=== PATIENT | male | born 1965 | race Caucasian/White ===

== ENCOUNTER 2024-04-04 05:04 | Observation (INO) ==
--- NOTE | 2024-02-25 13:12 | PAT Medication Instructions ---
Medication Instructions Date of Service February 25, 2024 Home Medications aspirin 81 mg tablet,delayed release (Adult Aspirin Regimen) 81 mg PO QAM empagliflozin 10 mg tablet (Jardiance) 10 mg PO QPM glimepiride 2 mg tablet (Amaryl) 4 mg PO QAM metformin 1,000 mg tablet (Glucophage) 1,000 mg PO BID omeprazole 20 mg capsule,delayed release 20 mg PO QPM rivaroxaban 20 mg tablet (Xarelto) 20 mg PO QAM bimatoprost 0.03 % eye drops 1 drp OPR HS carvedilol 12.5 mg tablet 12.5 mg PO BID cyanocobalamin (vitamin B-12) 1,000 mcg tablet 1,000 mcg PO QPM fenofibrate nanocrystallized 145 mg tablet 145 mg PO QPM rosuvastatin 10 mg tablet 10 mg PO QAM amiodarone 200 mg tablet 200 mg PO BID bupropion HCl 150 mg 24 hr tablet, extended release 150 mg PO QAM calcium carbonate 500 mg-vitamin D3 3.125 mcg (125 unit) tablet 1 tab PO BID fexofenadine 180 mg tablet 180 mg PO QAM semaglutide (weight loss) 0.5 mg/0.5 mL subcutaneous pen injector (Wegovy) 0.5 - 1 mg subcut Q7D STOP 7 days before surgery semaglutide (weight loss) 0.5 mg/0.5 mL subcutaneous pen injector (Wegovy) 0.5 - 1 mg subcut Q7D STOP 3 days before surgery empagliflozin 10 mg tablet (Jardiance) 10 mg PO QPM ASK your prescriber and surgeon aspirin 81 mg tablet,delayed release (Adult Aspirin Regimen) 81 mg PO QAM rivaroxaban 20 mg tablet (Xarelto) 20 mg PO QAM(in order for spinal or epidural anesthesia, Xarelto needs to be stopped 72 hours/3 days before surgery. Please check if okay with doctor that prescribes this to you) STOP taking 48 hours before surgery fenofibrate nanocrystallized 145 mg tablet 145 mg PO QPM DO NOT take the morning of surgery glimepiride 2 mg tablet (Amaryl) 4 mg PO QAM metformin 1,000 mg tablet (Glucophage) 1,000 mg PO BID calcium carbonate 500 mg-vitamin D3 3.125 mcg (125 unit) tablet 1 tab PO BID fexofenadine 180 mg tablet 180 mg PO QAM Take morning of surgery With a small sip of water, OTHERWISE NOTHING TO EAT OR DRINK AFTER MIDNIGHT: carvedilol 12.5 mg tablet 12.5 mg PO BID rosuvastatin 10 mg tablet 10 mg PO QAM amiodarone 200 mg tablet 200 mg PO BID bupropion HCl 150 mg 24 hr tablet, extended release 150 mg PO QAM Take evening before surgery metformin 1,000 mg tablet (Glucophage) 1,000 mg PO BID omeprazole 20 mg capsule,delayed release 20 mg PO QPM bimatoprost 0.03 % eye drops 1 drp OPR HS carvedilol 12.5 mg tablet 12.5 mg PO BID cyanocobalamin (vitamin B-12) 1,000 mcg tablet 1,000 mcg PO QPM amiodarone 200 mg tablet 200 mg PO BID calcium carbonate 500 mg-vitamin D3 3.125 mcg (125 unit) tablet 1 tab PO BID Other Notes If you have any questions please call us at [phone] or [phone] or [phone] or [phone]
--- NOTE | 2024-03-07 11:58 | Anesthesiology Consultation ---
Date of Service March 07, 2024 Assessment & Plan (1) Encounter for pre-operative examination: - Check BSG AM DOS - Infectious disease screening: Per assessment on 03/07/24: No known infectious disease contacts or current infectious disease symptoms. No noted recent Covid positive test result. - Outpatient joint assessment: Pt currently scheduled for inpatient pathway. If surgeon requests review for outpatient joint pathway, patient is not recommended candidate for outpatient joint program from anesthesia standpoint. - Rivaroxaban instructions: patient made aware that for neuraxial anesthesia, Rivaroxaban needs to be held 72 hours prior to surgery. Patient voiced understanding/will check if okay with prescriber. - Semaglutide/Wejoy instructions: Patient informed at PAT visit to stop 7 days prior to surgery- voiced understanding. DOS 04/04/24. Advised last dose to be 03/28/24. - Cardiology visit (02/11/24): "Patient is stable from a cardiac perspective to proceed with knee replacement as planned. He remains on amiodarone, with no symptoms to suggest recurrent ventricular arrhythmias, no arrhythmia events detected on device interrogation. For your upcoming knee surgery: Take your last dose of Xarelto in the evening 3 days prior to the procedure.. as noted, patient is seen in longitudinal follow-up of his history of septal infarct, ventricular tachycardia/fibrillation, hypercholesterolemia, hypercoagulable state with assessment and plan as noted above.. Follow Up: Return in about 1 year" Chart Review Chart Review: Acceptable Risk for Surgery and Patient seen in Pre Admission Testing Teaching & Discussion Pre-Anesthesia Teaching/Discussion Notes: Instructed NPO after midnight before surgery,except medications with 15 cc of water. Medication instructions provided according to the PAT guidelines. History Surgery Operation Date: 04/04/24 12:10 Proposed Procedures p Left Total Knee Arthroplasty - David Davis, Height/Weight Height: 6 ft Weight: 137.9 kg Allergies Allergy/AdvReac Type Severity Reaction Status Date / Time lisinopril Allergy Mild Rash Verified 02/28/24 16:17 warfarin Allergy Mild Rash Verified 02/28/24 16:17 Medications Home Medications Medication Instructions Recorded Confirmed Last Taken aspirin 81 mg tablet,delayed 81 mg PO QAM 03/15/20 02/25/24 Unknown release (Adult Aspirin Regimen) empagliflozin 10 mg tablet 10 mg PO QPM 03/15/20 02/25/24 Unknown (Jardiance) glimepiride 2 mg tablet (Amaryl) 4 mg PO QAM 03/15/20 02/25/24 Unknown metformin 1,000 mg tablet 1,000 mg PO BID 03/15/20 02/25/24 Unknown (Glucophage) omeprazole 20 mg capsule,delayed 20 mg PO QPM 03/15/20 02/25/24 Unknown release rivaroxaban 20 mg tablet (Xarelto) 20 mg PO QAM 03/15/20 02/25/24 Unknown bimatoprost 0.03 % eye drops 1 drp OPR HS 08/23/23 02/25/24 Unknown carvedilol 12.5 mg tablet 12.5 mg PO BID 08/23/23 02/25/24 Unknown cyanocobalamin (vitamin B-12) 1,000 mcg PO QPM 08/23/23 02/25/24 Unknown 1,000 mcg tablet fenofibrate nanocrystallized 145 145 mg PO QPM 08/23/23 02/25/24 Unknown mg tablet rosuvastatin 10 mg tablet 10 mg PO QAM 08/23/23 02/25/24 Unknown amiodarone 200 mg tablet 200 mg PO BID 02/25/24 02/25/24 Unknown bupropion HCl 150 mg 24 hr tablet, 150 mg PO QAM 02/25/24 02/25/24 Unknown extended release calcium carbonate 500 mg-vitamin 1 tab PO BID 02/25/24 02/25/24 Unknown D3 3.125 mcg (125 unit) tablet fexofenadine 180 mg tablet 180 mg PO QAM 02/25/24 02/25/24 Unknown semaglutide (weight loss) 0.5 0.5 - 1 mg subcut Q7D 02/25/24 02/25/24 Unknown mg/0.5 mL subcutaneous pen injector (Aleisha) Past Medical History Medical History Bilateral primary osteoarthritis of knee H/O sinus tachycardia Heterozygous factor V Leiden mutation Hx of cardiac arrest Ventrical tachycardia 07/2023, ICD implanted Hx of deep venous thrombosis x2, most recent ~2008 Dx with Factor V Hx of squamous cell carcinoma Hyperlipemia Hypertension ICD (implantable cardioverter-defibrillator) in place 07/2023, [employer] with [facility] cardio/Dr. Jack Reflux esophagitis Sleep apnea CPAP (compliant) Type 2 diabetes mellitus Exercise / Class Metabolic Activity III < 4 Walking/Shop/Light housework Past Family History Family History Other Adopted Past Surgical History Surgical History H/O rhinoplasty History of cardiac cath 07/2023 ([place]): "Essentially normal coronary arteries" History of colonoscopy History of hernia surgery History of tooth extraction Status post ablation of incompetent vein using laser Past Anesthesia History No Hx of Anesthesia Complications and No Family Hx of Anesthesia Complications (Patient adopted) History of PONV No Hx of PONV and No Hx of Motion Sickness Social History Smoking Status: Never smoker Do You Dip or Chew Tobacco: No (Quit 2020) Hx Alcohol Use: No Hx Substance Use: No substance use type: does not use Review of Systems Patient denies chest pain, shortness of breath, fever, chills, cough, wheezing, palpitations. Physical Exam Vital Signs BP 123/76 P 84 TEMP 97.6 SP02 95%RA RESP 20 Physical Mildly decreased cervical extension range of motion. Full TMJ range of motion. TMD > 3.5 finger breaths Mallampati Score 3 Dentition: intact Lungs: clear throughout to auscultation Cardiac: regular rate and rhythm, no murmurs noted Spine: normal Carotid arteries: negative bruit Extremities: no LE edema Lab Results Anesthesia Preop Results Results Anesthesia Widget: WBC 6.85 K/ul (4.8-10.8) 03/07/24 Hgb 15.7 g/dl (14.0-18.0) 03/07/24 Hct 47.9 % (42.0-52.0) 03/07/24 Plt 237 K/uL (130-400) 03/07/24 PT 12.3 Seconds (9.0-12.0) H 03/07/24 PTT 29 Seconds (21-31) 03/07/24 INR 1.1 (0.9-1.1) 03/07/24 Blood Type A Negative 03/07/24 Antibody Screen NEGATIVE 03/07/24 Testing Laboratory Results 02/21/24 SODIUM 139 POTASSIUM 4.3 CHLORIDE 105 CO2 24 BUN 22 CREATININE 1.11 GLUCOSE 94 TSH 1.41 Electrocardiogram Date: 02/11/24 NSR at 79bpm. Low voltage QRS, consider pulmonary disease, pericardial effusion or normal variant. Septal infarct cited on or before 08/24/2023. No significant change compared to 08/28/2023 per flatwork supervisor comparison. Chest X-Ray Date: 08/27/23 Percutaneous ICD lead projects over the right chest wall. No pneumothorax. Echocardiogram Date: 08/23/23 LVEF 55-60%. No RWMA. Grade I DD. No significant valvular disease. Cardiac Catheterization Date: 08/23/23 Findings: LM -normal caliber, no significant disease LAD - Medium caliber, gives off a large first diagonal. LAD with no significant disease and extends around apex. D1 no significant disease Circumflex -medium caliber, no significant disease in AV groove circumflex. Small OM1 with luminal irregularities. RCA -dominant, large caliber, tortuous, angiographically normal Question of flush ostial occlusion near takeoff of OM1. Attempt made to probe area in question in case occluded vessel not visualized. Left main cannulated with EBU 3.5 guide. Demolitionist 50 wire used to attempt to wire into area near takeoff of OM1. No signs of of occluded vessel and further attempts stopped. LVEDP -26 Summary: Essentially normal coronary arteries. Elevated intracardiac filling pressure. Recurrent brief episodes of nonsustained ventricular arrhythmia during procedure. Recommendations: Continue amiodarone, beta-michael. Further work-up of arrhythmia and consideration of ICD per Dr. Jack. Other Testing ICD check Date: 12/17/23 Battery is at 98%. Presenting rhythm: Sinus rhythm.0 shocks delivered. "Not pacer dependent"
--- NOTE | 2024-04-03 12:06 | History & Physical Report ---
Date of Service April 03, 2024 Assessment & Plan (1) Osteoarthritis of left knee: We will proceed with a left total knee arthroplasty. Postoperatively he will be started on Xarelto for DVT prophylaxis and kept overnight in the hospital for postop medical management. He plans to have the hospital set up home health for discharge. History of Present Illness Chief Complaint: Osteoarthritis of the left knee. Primary Care Provider: Cyrus LewisDO Layton is a pleasant 58-year-old male who has been dealing with a chronic increasing left knee pain. X-rays and clinical examination have been diagnostic for severe osteoarthritis of his left knee. He is followed up with my partner, Dr. Anna. He has failed extensive conservative treatment including years of injections of the left knee. He is a high risk for surgery given his BMI, his factor V Leiden deficiency, and his diabetes. After full discussions in the office, he has elected proceed with a left total knee arthroplasty. Allergies Allergy/AdvReac Type Severity Reaction Status Date / Time lisinopril Allergy Mild Rash Verified 02/28/24 16:17 warfarin Allergy Mild Rash Verified 02/28/24 16:17 Home Medications Medication Instructions Recorded Confirmed Type aspirin 81 mg tablet,delayed 81 mg PO QAM 03/15/20 02/25/24 History release (Adult Aspirin Regimen) empagliflozin 10 mg tablet 10 mg PO QPM 03/15/20 02/25/24 History (Jardiance) glimepiride 2 mg tablet (Amaryl) 4 mg PO QAM 03/15/20 02/25/24 History metformin 1,000 mg tablet 1,000 mg PO BID 03/15/20 02/25/24 History (Glucophage) omeprazole 20 mg capsule,delayed 20 mg PO QPM 03/15/20 02/25/24 History release rivaroxaban 20 mg tablet (Xarelto) 20 mg PO QAM 03/15/20 02/25/24 History bimatoprost 0.03 % eye drops 1 drp OPR HS 08/23/23 02/25/24 History carvedilol 12.5 mg tablet 12.5 mg PO BID 08/23/23 02/25/24 History cyanocobalamin (vitamin B-12) 1,000 mcg PO QPM 08/23/23 02/25/24 History 1,000 mcg tablet fenofibrate nanocrystallized 145 145 mg PO QPM 08/23/23 02/25/24 History mg tablet rosuvastatin 10 mg tablet 10 mg PO QAM 08/23/23 02/25/24 History amiodarone 200 mg tablet 200 mg PO BID 02/25/24 02/25/24 History bupropion HCl 150 mg 24 hr tablet, 150 mg PO QAM 02/25/24 02/25/24 History extended release calcium carbonate 500 mg-vitamin 1 tab PO BID 02/25/24 02/25/24 History D3 3.125 mcg (125 unit) tablet fexofenadine 180 mg tablet 180 mg PO QAM 02/25/24 02/25/24 History semaglutide (weight loss) 0.5 0.5 - 1 mg subcut Q7D 02/25/24 02/25/24 History mg/0.5 mL subcutaneous pen injector (Wegovy) Past Med/Surg History Problem List Bilateral knee pain Sleep apnea Cardiac arrest with ventricular fibrillation (Acute) Cardiac arrest (Acute) Cardiac arrest with ventricular fibrillation Chronic venous insufficiency (Chronic) Venous stasis ulcer (Acute) HTN, goal to be determined Bilateral primary osteoarthritis of knee Osteoarthritis of left knee Hyperlipemia Type 2 diabetes mellitus Medical History Hypertension Hx of squamous cell carcinoma Hx of deep venous thrombosis x2, most recent ~2008 Dx with Factor V ICD (implantable cardioverter-defibrillator) in place 07/2023, [employer] with [facility] cardio/Dr. Jack Hx of cardiac arrest Ventrical tachycardia 07/2023, ICD implanted Sleep apnea CPAP (compliant) Heterozygous factor V Leiden mutation Reflux esophagitis H/O sinus tachycardia Surgical History History of cardiac cath 07/2023 ([place]): "Essentially normal coronary arteries" History of colonoscopy History of tooth extraction Status post ablation of incompetent vein using laser H/O rhinoplasty History of hernia surgery Family History Other Adopted Social History Smoking Status: Never smoker Tobacco Type: Smokeless Tobacco (Dip or Chew) Second Hand Exposure: No; Do You Dip or Chew Tobacco: No (Quit 2020); Hx Alcohol Use: No Hx Substance Use: No Preferred Language: Kosovan Communication Ability: Effective Visual Impairment: Limited Hearing Ability: Normal Fancy Stitcher Required: No Beliefs That Will Affect Care: None marital status: Current Living Situation: Spouse current occupational status: employed current occupation: manager new product for [employer] Feels Safe at Home: Yes Safety Concerns: Feels Safe At This Time Assistive Devices: Cane, CPAP and Glasses Review of Systems All systems reviewed & are unremarkable except as noted in HPI & below. Physical Exam On physical examination of the left knee, he has a slight varus deformity. He has tenderness palpation of the distal medial femoral condyle and over the medial joint line.. Constitutional WD/WN, vitals as above Eyes PERRL, conjunctivae normal, anicteric sclerae ENMT external ear and nose normal, oropharynx normal Neck trachea midline, no thyromegaly Respiratory normal respiratory effort Cardiovascular RRR, no murmur, no edema Gastrointestinal (Abdomen) normal bowel sounds, soft, nontender, no hepatosplenomegaly Psychiatric A+Ox3, euthymic affect Results & Data Results & Data Laboratory Results . Diagnostic Findings X-rays of the left knee show advanced osteoarthritis with joint space narrowing, osteophyte formation, and [id number] articulation. PG Care Time/CCT Total # of Minutes Spent Total Time Spent with Patient: Total time spent is greater than 50% in coordination of care (as documented) at patient's floor/unit and/or counseling patient: Coding Level of Care Code None Diagnoses Osteoarthritis of left knee M17.12
[2024-04-04] MEDS: dexAMETHasone**PF** 10 MG/ML VIAL IV SCH (06:04)
[2024-04-04] MEDS: LR 500ML BOLUS, THEN 15ML/HR IV SCH (06:04)
[2024-04-04] MEDS: FAMOTIDINE 20 MG TAB PO SCH (06:04)
[2024-04-04] MEDS: LR 60ML/HR IV SCH (06:04)
[2024-04-04] MEDS: ACETAMINOPHEN 500 MG TAB PO SCH (06:05)
[2024-04-04] MEDS: GABAPENTIN 600 MG DOSE PO SCH (06:05)
[2024-04-04] MEDS ORDERED: ROPIVACAINE 0.5% 5 MG/ML 30 ML VIAL ONE (06:07)
[2024-04-04] MEDS ORDERED: BUPIVACAINE 0.5 % 5 MG/1 ML PF 10ML VIAL ONE (06:07)
--- NOTE | 2024-04-04 06:27 | History & Physical Bridge Note ---
Date of Service April 04, 2024 History & Physical Bridge Note I have examined the patient, reviewed the History & Physical and in the interval since the performance of the History & Physical I have noted the following changes of clinical significance: no changes noted
[2024-04-04] MEDS ORDERED: fentaNYL citrate PF 100 MCG/2 ML VIAL IV PRN (06:33)
[2024-04-04] MEDS ORDERED: ATROPINE SULFATE 0.1 MG/ML 10ML SYR IV PRN (06:33)
[2024-04-04] MEDS ORDERED: ONDANSETRON INJ 2 MG/ML 2 ML VIAL IV PRN ×2 (06:33→09:51)
[2024-04-04] MEDS ORDERED: ePHEDrine sulfate 50 MG/ML AMP IV PRN (06:33)
[2024-04-04] MEDS ORDERED: fentaNYL citrate PF 100 MCG/2 ML VIAL ONE (06:35)
[2024-04-04] MEDS ORDERED: MIDAZOLAM HCL 1 MG/ML 2ML VIAL ONE ×3 (06:35→08:06)
[2024-04-04] MEDS: TRANEXAMIC ACID 1,000 MG **IV Pre-op IV SCH (06:39)
[2024-04-04] MEDS ORDERED: PROPOFOL IV EMULSION 10 MG/ML 20 ML VIAL IV ONE ×2 (06:43→08:30)
[2024-04-04] MEDS ORDERED: KETAMINE HCL 10MG/ML SYR ONE (06:46)
[2024-04-04] MEDS: ceFAZolin 3000MG 3,000 MG/72.5 ML BAG IV SCH (07:05)
[2024-04-04] MEDS: ORTHO JOINT ANESTHETIC ONE (07:42)
[2024-04-04] MEDS: TRANEXAMIC ACID 1,000 MG **IV Intra-op IV SCH (08:17)
--- NOTE | 2024-04-04 08:17 | Operative Report ---
PG Post Operative Report Pre & Post Diagnosis Operation Date: 04/04/24 07:00 Pre-Op Diagnosis: Degenerative Joint Disease Left Knee Post-Op Diagnosis: Degenerative Joint Disease Left Knee I identified the patient and participated in the time-out.: Yes Procedure Operation Date: 04/04/24 07:00 Actual Procedures p Left Total Knee Arthroplasty(Left) - David Davis DO Surgeon David Davis DO Pastrycook'S Assistant David Mae PA-C Estimated Blood Loss 30 Findings Consistent with Post-Op Diagnosis Specimens Left femoral tibial bone Description of Procedure Implants used: I used a Clint Persona total knee arthroplasty system with a size 10 standard PS femur, F tibia, 31 oval patella, and a size 16 CPS polyethylene bearing. All components were cemented in place with Biomet cement. Buck arrived [facility] for the above procedure. He was seen in the preoperative holding area and the operative extremity was identified and signed. He was given a preoperative antibiotic, TXA, a spinal anesthetic and an adductor nerve block. He was taken back to the operating room and laid on the table in supine position. He was given basic sedation. The operative knee was then prepped and draped in sterile fashion. A timeout was done, and the patient and the operative extremity was properly identified. A midline incision was made directly over the patella. Dissection was taken down to the extensor mechanism. A medial parapatellar arthrotomy was used. The medial retinaculum was released and the fat pad was mostly excised. The knee was flexed and the ACL, PCL, and meniscus were removed. A drill was sent down the center of the femoral canal followed by an intramedullary robert. Off that robert a distal femoral cutting block was placed. 9 mm was resected off the distal femur at 5 of valgus. A posterior referencing AP sizing guide was then placed on the distal femur. The femur measured to be a size 10. 2 drill holes were placed in 3 of external rotation. A 4-in-1 cutting block was then impacted into place. Anterior, posterior, and chamfer cuts were then made. The proximal tibia was then exposed. An external tibial alignment guide was placed. A tibial cut guide was then anchored in place and the proximal tibia was then resected. The posterior aspect of the knee was then opened up and any additional meniscus fragments and osteophytes were removed. The tibia measured to be a size F. The tibial plate was then placed in the appropriate rotation and the tibia was drilled and punched. Trial components were then placed. I used a size 16 CPS polyethylene insert. The knee was brought through a full range of motion and felt to be stable. The peg holes for the femoral component were then drilled. The patella was then everted and 9 mm was resected off the posterior aspect of the patella. The patella measured to be a size 31 oval. 3 peg holes were then drilled. A trial patella was placed. The knee was once again brought through a full range of motion and felt to be stable. Trial components were then removed. The surrounding soft tissues were injected with 100 cc of an orthopedic pain control cocktail. All components were then cemented into place with Biomet cement. The final polyethylene insert was then snapped into place. Once cement was dry the tourniquet was deflated. Hemostasis was obtained. A dilute betadyne lavage was then done for 3 minutes. The joint was then irrigated with normal saline solution. The medial parapatellar arthrotomy was then closed with #1 Vicryl suture. The skin was closed with 2-0 Vicryl, 3-0V lock suture, and brittany. A soft compressive dressing was placed. He was then transferred to a hospital bed and taken to the postanesthesia care unit in stable condition. He tolerated the procedure well. David Mae PA-C, was present for the entire procedure. He was critical for patient positioning, prepping, draping, retraction exposure, wound closure and application of sterile dressing. I attest to the content of the Intraoperative Record and any orders documented therein. Any exceptions are noted below.
--- NOTE | 2024-04-04 09:10 | XRay Report ---
TWO VIEWS LEFT KNEE CLINICAL HISTORY: Postoperative examination. FINDINGS: AP and crosstable lateral portable views of the left knee are obtained. A left knee arthrop lasty is in near anatomic alignment. There has been undersurface remodeling of the patella. No acute fracture is seen. There are expected postoperative changes around the knee including skin clips, soft tissue edema, and subcutaneous gas. Soft tissue calcifications are seen in the calf. IMPRESSION: Expected postoperative changes status post left knee arthroplasty. No acute fracture is s een. ACT 112: Negative or not required by law. Electronically signed by: Adrian Higgins M.D. 04/04/2024 9:08 AM
[2024-04-04] MEDS ORDERED: METOCLOPRAMIDE HCL INJ 5 MG/ML 2 ML VIAL IV PRN (09:51)
[2024-04-04] MEDS ORDERED: NALOXONE HCL 0.4 MG/1 ML VIAL/CARP IV PRN (09:51)
[2024-04-04] MEDS ORDERED: PHARMACY GLYCEMIC MGMT CONSULT PRN (09:51)
[2024-04-04] MEDS ORDERED: HYDROmorphone INJ 0.5 MG/0.5 ML SYR IV PRN (09:51)
[2024-04-04] MEDS ORDERED: MAGNESIUM HYDROXIDE SUSP 30 ML UDC PO PRN (09:51)
[2024-04-04] MEDS ORDERED: bisacodyL 10 MG SUPP PR PRN (09:51)
[2024-04-04] MEDS: ROPIV 0.5% 246mg, Ketorolac 30mg, EPINEPHrine 0.5mg in NSS INFIL SCH (09:57)
[2024-04-04] MEDS: SODIUM CHLORIDE 0.9% 1,000 ML IV SCH (10:23)
[2024-04-04] MEDS: AMIODARONE 200 MG TAB PO SCH (10:44)
[2024-04-04] MEDS: buPROPion XL 150 MG TABCR PO SCH (10:45)
[2024-04-04] MEDS: FEXOFENADINE HCL 180 MG TAB PO SCH (10:45)
[2024-04-04] MEDS: carvediloL 12.5 MG TAB PO SCH (10:45)
[2024-04-04] MEDS: MULTIVITAMIN TAB PO SCH (10:46)
[2024-04-04] MEDS: DOCUSATE SODIUM 100 MG CAP PO SCH (10:46)
[2024-04-04] MEDS: ROSUVASTATIN CALCIUM 10 MG TAB PO SCH (10:46)
--- NOTE | 2024-04-04 10:46 | Pharmacy Report ---
Pharmacy Glycemic Short Note 2 - Date of Service April 04, 2024 - Glycemic Short BSG Results (Last 24 hours): 04/04/24 04/04/24 05:28 09:12 POC Glucose 182 H 191 H OUTPATIENT ANTIDIABETIC REGIMEN: * metformin 1000 mg PO BID * empagliflozin 10 mg PO qPM * glimepiride 4 mg PO qAM * semaglutide 1 mg SQ weekly * A1c = 7.8% (08/24/23) ASSESSMENT: * Buck is a 59 yo T2DM s/p L TKA * He was administered a one time dose of dexamethasone 10 mg IV pre op. Anticipate steroid induced hyperglycemia. * I suspect patient will require SQ basal + bolus insulin while admitted based on fasting BSG of 182 mg/dL plus he takes multiple oral agents at home. * Will order a one time dose of weight based Lantus and start Novolog per weight/stress 3. PLAN FOR INPATIENT GLYCEMIC CONTROL: * Hold outpatient oral diabetes medications * Basal insulin * Lantus 25 units SQ x 1 dose * Reassess dosing on 6/8 AM * Bolus insulin * NovoLog per scale ACHS or Q6hrs while NPO * Goal Range: Low 110 mg/dL - High 140 mg/dL * Correction Factor: 15 mg/dL/unit * Nutritional / Prandial insulin per carb ratio of 1 unit per 6 grams CHO consumed
[2024-04-04] MEDS: KETOROLAC 30 MG/ML VIAL IV SCH (10:48)
--- NOTE | 2024-04-04 11:13 | Anesthesiology Progress Note ---
Date of Service April 04, 2024 Anesthesia Post Procedure Vital Signs Vital Signs: Temp Pulse Pulse Resp BP Pulse Ox O2 Del Method 04/04/24 10:41 97.5 F L 81 17 125/81 95 Room Air 04/04/24 10:20 97.7 F 78 17 119/75 97 Room Air 04/04/24 09:40 97.7 F 76 17 120/78 96 Room Air 04/04/24 09:10 79 20 113/71 95 Room Air 04/04/24 09:00 81 19 111/64 95 Room Air 04/04/24 08:50 77 17 114/67 98 Oxymask 04/04/24 08:42 97.2 F L 78 17 113/62 98 Oxymask 04/04/24 05:47 97.9 F 87 18 125/72 95 Room Air O2 Flow Rate 04/04/24 10:41 04/04/24 10:20 04/04/24 09:40 04/04/24 09:10 04/04/24 09:00 04/04/24 08:50 5 04/04/24 08:42 5 04/04/24 05:47 Pain Intensity Left Knee: Pain Intensity: 7 Transfer of Care Handoff Completed per policy Notes Mental Status: alert / awake / arousable and participated in evaluation Patient Amnestic to Procedure: Yes Nausea / Vomiting: adequately controlled Pain: adequately controlled Airway Patency, RR, SpO2: stable & adequate BP & HR: stable & adequate Hydration State: stable & adequate Neuraxial Anesthesia: was administered and sensory block is resolving Anesthetic Complications: no major complications apparent and Pt Satisfied with anesthetic care
[2024-04-04] MEDS: LANTUS PER UNIT CHARGE SC ONE (11:47)
[2024-04-04] MEDS: INSULIN ASPART PER UNIT CHARGE SC SCH (11:48)
[2024-04-04] MEDS: ceFAZolin 2000MG 2,000 MG/15 ML SYR IV SCH (15:27)
[2024-04-04] MEDS: SENNA 8.6 MG TAB PO SCH (20:06)
[2024-04-04] MEDS: FENOFIBRATE NANOCRYSTALLIZED 145 MG TABLET PO SCH (20:07)
--- OUTSIDE RECORDS SUMMARY | 2024-04-04 21:56 | External Medical Summary | Summary of Care ---
Author Name Unknown Organization [facility] Address [address] [place] [address] Phone [phone] Care Team Providers [facility] [employer] Name Role Phone Aquilino David MD Primary Care Provider + Encounter Details Date Type Department Care Team (Late st Contact Info) Description 12/21/2023 Telephone Access Center, [place] [address] [facility] *DO NOT REMOVE THIS DEPARTMENT* [place], [place] [id number] Services, Scheduling [address] [place] [address] Allergies Active Allergy Reactions Criticality Noted Date Comments Lisinopril Rash 11/14/2017 angiedema Warfarin Sodium Hives Medium 01/05/2011 Rash "like poison jamal" documented as of this encounter (statuses as of 03/21/2024) Medications Medication Sig Dispensed Refills Start Date End Date Status Omeprazole Magnesium (PRILOSEC OTC) 20 MG TBECIndications:Gas troesophageal reflux disease without esophagitis Take 1 Tab by mouth daily. 30 min before eating 90 Tab 3 07/30/2017 Active Blood Glucose Monitoring Suppl (D-CARE GLUCOMETER) w/Device KITIndications:Type 2 diabetes mellitus with hemoglobin A1c goal of less than 7.0% (HCC) Use as directed. 1 Kit 2 12/21/2017 Active Blood Glucose Monitoring Suppl (CONTOUR NEXT ONE) KITIndications:Type 2 diabetes mellitus with hemoglobin A1c goal of less than 7.0% (HCC) Use as directed. 1 Kit 5 12/21/2017 Active CHERYL MICROLET LANCETS MISCIndications:Typ e 2 diabetes mellitus with hemoglobin A1c goal of less than 7.0% ([facility]) Test home glucose once daily in am prior to breakfast 100 Each 3 12/21/2017 Active Contour Next Test In Vitro Strip (Glucose Blood)Indications:T ype 2 diabetes mellitus with hemoglobin A1c goal of less than 7.0% ([facility]) USE DIRECTED TEST TWICE DAILY 25 Strip 3 09/27/2020 Active Lumigan 0.01 % Ophthalmic Solution (Bimatoprost) Instill 1 Drop into both eyes at bedtime. Active Calcium 500 MG Oral Tablet Take 1 Tablet by mouth in the morning and 1 Tablet before bedtime. Active CPAP every night at bedtime . Active [facility] Vitamin B-12 1000 MCG Oral Tablet (vitamin b 12)Indications:B12 deficiency TAKE 1 TABLET BY MOUTH EVERY DAY IN THE MORNING 90 Tablet 4 08/06/2023 Active buPROPion HCl ER (XL) 150 MG Oral Tablet Extended Release 24 Hour (Wellbutrin XL)Indications:Adju stment disorder with depressed mood Take 1 Tablet by mouth in the morning. 90 Tablet 3 09/13/2023 Active Amiodarone HCl 200 MG Oral Tablet (Cordarone)Indicati ons:Ventricular fibrillation (HCC) Take 1 Tablet by mouth in the morning and 1 Tablet before bedtime. 180 Tablet 3 09/17/2023 Active Xarelto 20 MG Oral Tablet (Rivaroxaban) TAKE 1 TABLET BY MOUTH EVERY DAY WITH DINNER 90 Tablet 3 10/02/2023 Active Additional Information Patient taking differently: 20 mg Oral HS, Reported on 12/18/2023 Bimatoprost 0.03 % Ophthalmic Solution (Lumigan) INSTILL 1 DROP INTO THE RIGHT EYE ONCE DAILY INTHE EVENING 08/31/2023 Active Fenofibrate 145 MG Oral Tablet (Tricor)Indications :Mixed dyslipidemia TAKE 1 TABLET BY MOUTH EVERY DAY 90 Tablet 3 10/23/2023 Active Jardiance 10 MG Oral Tablet (Empagliflozin)Graciela cations:Type 2 diabetes mellitus with hemoglobin A1c goal of less than 7.0% ([facility]) TAKE 1 TABLET BY MOUTH EVERY DAY 90 Tablet 3 10/28/2023 Active EpiPen 2-Baldev 0.3 MG/0.3ML Injection Solution Auto-injector For a severe reaction: Place orange end against the outer thigh, press firmly, hold in place for 10 seconds and go to the Emergency room. 2 Each 11/07/2023 Active traZODone HCl 50 MG Oral Tablet (Desyrel)Indication s:Insomnia, unspecified type 1-2 tab 1 hour before bed for sleep 180 Tablet 3 11/30/2023 Active documented as of this encounter (statuses as of 03/21/2024) Active Problems Problem Noted Date Diagnosed Date Sustained VT (ventricular tachycardia) 4 PVT (paroxysmal ventricular tachycardia) 024 Automatic implantable cardioverter-defibrillator in situ 11/07/2023 Type 2 diabetes mellitus wit h hyperglycemia, without long-term current use of insulin 09/03/2023 Well adult exam 09/03/2023 Overview: 08/20 Vfib x3. Cath ok. found to be in ventricular fibrillation in the emergency room. He was cardioverted. Required a 2nd cardioversion. Transferred to [facility]. Required a 3rd cardioversion. Had cardiac catheterization showing clean arteries. He had a cardiac MRI showing a small amount of scar tissue that was suspected to be the cause of his arrhythmia. He had a defibrillator inserted and he was discharged home the next day. Was also started on amiodarone which he is continuing. 08/20 Cardiac MRI-1. Cardiac MRI findings of borderline reduced left ventricular systolic function. There is a focal near transmural scar noted in the basal to mid inferoseptum with corresponding edema on T2 para metric mapping (63 milliseconds) suggestive of an infarct which may be the source of patient's polymorphic ventricular tachycardia. 2. The left ventricular systolic function is borderline reduced. The calculated LV ejection fraction is 53% Dyslipidemia 01/01/2023 Primary osteoarthritis of left knee 01/01/2023 Lateral epicondylitis, right elbow 01/01/2023 Rotator cuff tendonitis, right 01/01/2023 Hx of actinic keratosis 06/22/2022 Overview: Bowenoid AK on L forearm Hx of nonmelanoma skin cancer 06/22/2022 Overview: SCCIS (L forearm 06/19) BRIDGETTE on CPAP 06/13/2022 Subchondral insufficiency fracture of condyle of left femur 06/13/2022 Anaphylaxis due to ingested food 03/14/2022 Cellulitis of left lower extremity 2020 Morbid obesity due to excess calories 06/17/2019 Hyperlipidemia 07/12/2018 Hx of venous thromboembolic disease 04/10/2018 Body mass index (BMI) of 40.0 to 44.9 in adult 1 Overview: Per Obesity protocol #1 Hypertension 04/10/2016 Overview: Per HTN Protocol Tobacco use disorder 03/31/2015 Adjustment disorder with depressed mood 02/25/20 14 Type 2 diabetes mellitus wit h hemoglobin A1c goal of less than 7.0% 05/20/2013 Overview: ICD-10 update of inactive term Factor 5 Leiden mutation, heterozygous 3 Overview: 11/10 new dx with 2nd DVT Sinus tachycardia 11/28/2012 Varicose vein of leg 01/05/2011 Venous insufficiency 01/05/2011 Overview: Compression stockings. Reflux esophagitis 01/05/2011 documented as of this encounter (statuses as of 03/21/2024) Resolved Problems Problem Noted Date Diagnosed Date Resolved Date Frequent PVCs 08/25/2023 08/28/2023 VF (ventricular fibrillation) 08/24/2023 08/28/2023 Polymorphic ventricular tachycardia 08/24/2023 08/28/2023 Venous stasis ulcer of ankle, left 2020 11/02/2020 HTN, goal below 140/80 09/16/201404/13 Overview: Per HTN Protocol Elevated blood pressure, situational 01/14/2013 09/16/2014 Tobacco use disorder 01/14/2013 014 History of DVT (deep vein thrombosis) 11/28/2012 10/09/2017 Obesity, Class II, BMI 35-39 .9, isolated (see actual BMI) 01/05/2011 08/02/2017 Overview: Per Obesity protocol #1 Dyslipidemia, goal LDL below 160 01/05/2011 11/26/2013 documented as of this encounter (statuses as of 03/21/2024) Immunizations Name Administration Dates Next Due COVID-19 mRNA, LNP-s, No Pre serve, 2-Dose Series (Work[employer]) 03/02/2021,02/09/2021 COVID-19, MRNA-LNP, 23-24, P F, 30 MCG/0.3 mL, 12 YRS AND ABOVE, IM ([employer]) 08/13/2023 Covid-19, Mrna, Lnp-s, Pf, B ivalent, 30 Mcg, IM, 12 yrs and above (Pfizer) 07/27/2022 Hepatitis B, 20+ yrs 05/10/2017,11/02/2016,08/31 Pneumococcal Conjugate Vacci ne, 20-valent ([id number]) 06/13/2022 Pneumococcal Polysaccharide PPV23 (Pneumovax) 02/24/2014 Seasonal Influenza Virus Vac cine, Unspecified Formulation 08/06/2020 Seasonal Influenza, PF, 6 M & above, IM , (FluLaval or Fluzone) 07/13/2023,07/20/2022,08/25/2019,07/12,07/30/2017 Seasonal Influenza, Quadriva lent, No Preserve, IM 06/30/2016,07/24/2015 Seasonal Influenza, Quadriva lent,with Preserve, 3 yr & above, IM 08/06/2020 Seasonal Influenza, Split, I IV3, With Preserve, Inj 09/16/2014,08/26/2013,07/15/2012,07/04,06/27/2010 TDAP (age 10 and older)(Boostrix) 06/21/2021 TDAP (age 11 and older)(Adacel) 06/27/2010 Zoster Vaccine Recombinant (Shingrix) 06/18/2020 ,12/19/2019 documented as of this encounter Social History Tobacco Use Types Packs/Day Years Used Date Smoking Tobacco: Never Smokeless Tobacco: Former Snuff Quit: 06/29/2021 Alcohol Use Standard Drinks/Week Comments No 0 (1 standard drink = 0.6 oz pur e alcohol) off & on --stopped 1 mo ago. PHQ-2 Answer Date Recorded PHQ Adult Total Score 0 07/13/2023 Hunger Vital Sign Answer Date Recorded Within the past 12 months, y ou worried that your food would run out before you got the money to buy more. Never true 06/29/20 Within the past 12 months, t he food you bought just didn't last and you didn't have money to get more. Never true 06/29/2023 Sex and Gender Information Value Date Recorded Sex Assigned at Male 03/25/2019 12:25 PM EDT Gender Identity Male 03/25/2019 12:25 PM EDT Sexual Orientation Straight 03/25/2019 12 :25 PM EDT Job Start Date Occupation Industry Not on file Not on file Not on file documented as of this encounter Functional Status Functional Status Response Date of Assess ment Are you deaf or do you have serious difficulty h earing? No 08/24/2023 Are you blind or do you have serious difficulty seeing, even when wearing glasses? No 08/24/2023 Do you have serious difficul ty walking or climbing stairs? (5 years old or older) No 08/24/2023 Do you have difficulty dress ing or bathing? (5 years old or older) No 08/24/2023 Because of a physical, menta l, or emotional condition, do you have difficulty doing errands alone such as visiting a doctor s office or shopping? (15 years old or older) No 08/24/20 Cognitive Status Response Date of Assessm ent Because of a physical, menta l, or emotional condition, do you have serious difficulty concentrating, remembering, or making decisions? (5 years old or older) No 08/24/2023 documented as of this encounter Miscellaneous Notes * Telephone Encounter - Rosalee Camarillo LPN - 12/21/2023 2:29 PM EST Spoke with patient-he wants to have RFA first to see if he can get relief to push out replacement surgery. States he wanted cleared by cardiology for all procedures. * Telephone Encounter - Rosalee Camarillo LPN - 12/21/2023 2:04 PM EST Left another message for patient. I need to talk to him if he returns call. * Telephone Encounter - Gladys Baugh OSA - 12/21/2023 9:39 AM EST Pt says he is returning a call from someone in the office. Pt wants to keep his appt on December 31. Gladys Ramos documented in this encounter Plan of Treatment Upcoming Encounters Date Type Department Care Team (Late st Contact Info) Description 05/14/2024 9:00 AM EDT Office Visit Family Practice [facility] [address] [place] [id number] [place] CRNP [address] [place] [address] 06/13/2024 11:20 AM EDT Telemedicine Nutrition & Weight Management, [facility] [address] [place] [address] Gemma Streeter PA-C [address] [place] [address] 07/23/2024 3:00 PM EDT Office Visit Dermatology [address] [place] [address] Bruna Camacho PA-C [address] [place] [address] [place] [address] 09/02/2024 10:30 AM EST Cardiac Studies Cardiology, [facility] [address] [place] [address] [facility] [address] [address] Scheduled Procedures Name Priority Associated Diagnoses Date/Ti me VT ISCHEMIC EPS AND CATHETER ABLATION Sustained VT (ventricular tachycardia) (HCC) COLONOSCOPY FLEXIBLE PROXIMA L DIAGNOSTIC Recall Colon cancer screening Health Maintenance Due Date Last Done Comments Hepatitis C Screening 1984 Cologuard 2011 Fecal Occult Blood Test 2011 Sigmoidoscopy 2011 Diabetic Foot Exam 01/02/2024 01/01/2023, 0 06/17/2019, 07/12/2018, Additional history exists HbA1c 04/23/2024 10/23/2023, 07/30, 07/13/2023, Additional history exists Diabetic Eye Exam 06/18/2024 06/18/2023, , 06/24/2020, Additional history exists Albumin/Creatinine Ratio 07/13/2024 023, 06/13/2022, 03/18/2021, Additional history exists Depression Screening 07/13/2024 07/13/2023 GFR 02/20/2025 02/21/2024, 1111/2022, 08/28/2023, Additional history exists Colonoscopy 09/14/2027 09/14/2017, 09/14/2017 Colorectal Cancer Screening 09/14/2027 Lipid Panel 08/24/2028 08/24/2023, 11/30, 08/16/2022, Additional history exists DTaP,Tdap,and Td Vaccines (3 - Td or Tdap) 06/21/2031 06/21/2021, 06/27/2010 Hepatitis B Completed 05/10/2017, 02/2017, 08/31/2016 Zoster Vaccines Completed 06/18/2020, 12/19/2019 Pneumococcal Vaccine: Pediatrics (0 to 5 Years) and At-Risk Patients (6 to 64 Years) Completed 06/13/2022, 02/24/2014 Influenza Vaccine (FLU shot) Completed , 07/20/2022, 08/06/2020, Additional history exists COVID-19 Vaccine Completed 08/13/2023, , 03/02/2021, Additional history exists GARDASIL-HPV IMMUNIZATION SERIES Aged Out No longer eligible based on patient's age to complete this topic MENINGOCOCCAL (MENACTRA/MENVEO) Aged Out No longer eligible based on patient's age to complete this topic documented as of this encounter Medical Devices Implanted Type Area Mechanical Estimator Device Identifier Shelf Expiration Date Model / Serial / Lot Lead Emblem S-Icd 45cm - [id number] Implanted:Qty: 1 on 08/27/2023 by Geovanni Bolivar MD at [facility] [place] [employer] : CRM [id number] 12/08/2024 [id number] / [id number] / [id number] Generator Pulse - [id number] Implanted:Qty: 1 on 08/27/2023 by Geovanni Bolivar MD at [facility] [place] [employer] : PAIN MGMT [id number] 04/03/2025 [id number] / [id number] / [id number] Sys Delivery Electrode S-Icd - [id number] Implanted:Qty: 1 on 08/27/2023 by Geovanni Bolivar MD at [facility] [place] [employer] : CRM [id number] 01/27/2024 [id number] / / [id number] documented as of this encounter Advance Directives * Full Code (Latest Code Status on File) Date Activated Date Inactivated Comments 08/24/2023 11:45 AM 08/28/2023 4:24 PM This orde r reflects the patients wishes and were consensually agreed upon. Question Answer Comments Discussion of Advance Directives occurred with: Patient Care Teams [employer] Relationship Specialty Start Date End Date Aquilino David MD [address] [facility] [place] [address] PCP - General Family Medicine 09/07/23 documented as of this encounter
--- OUTSIDE RECORDS SUMMARY | 2024-04-04 21:56 | External Medical Summary | Summary of Care ---
Author Name Unknown Organization [facility] Address [address] [place] [address] Phone [phone] Care Team Providers Care Film Crew Member Name Role Phone Aquilino David MD Primary Care Provider + Reason for Visit * Reason Onset Date Comments Medication Problem 01/03/2024 Encounter Details Date Type Department Care Team (Late st Contact Info) Description 01/03/2024 Telephone Family Practice [facility] [address] [place] [address] Aquilino David MD [address] [place] [address] Medication Problem Allergies Active Allergy Reactions Criticality Noted Date Comments Lisinopril Rash 11/14/2017 angiedema Warfarin Sodium Hives Medium 01/05/2011 Rash "like poison jamal" documented as of this encounter (statuses as of 04/03/2024) Medications Medication Sig Dispensed Refills Start Date End Date Status Omeprazole Magnesium (PRILOSEC OTC) 20 MG TBECIndications: Gastroesophageal reflux disease without esophagitis Take 1 Tab by mouth daily. 30 min before eating 90 Tab 3 7 Active Blood Glucose Monitoring Suppl (D-CARE GLUCOMETER) w/Device KITIndications:T ype 2 diabetes mellitus with hemoglobin A1c goal of less than 7.0% ([facility]) Use as directed. 1 Kit 2 8 Active Blood Glucose Monitoring Suppl (CONTOUR NEXT ONE) KITIndications:T ype 2 diabetes mellitus with hemoglobin A1c goal of less than 7.0% (HCC) Use as directed. 1 Kit 5 8 Active CHERYL MICROLET LANCETS MISCIndications: Type 2 diabetes mellitus with hemoglobin A1c goal of less than 7.0% (HCC) Test home glucose once daily in am prior to breakfast 100 Each 3 8 Active Contour Next Test In Vitro Strip (Glucose Blood)Indication s:Type 2 diabetes mellitus with hemoglobin A1c goal of less than 7.0% (HCC) USE DIRECTED TEST TWICE DAILY 25 Strip 3 0 Active Lumigan 0.01 % Ophthalmic Solution (Bimatoprost) Instill 1 Drop into both eyes at bedtime. Active Calcium 500 MG Oral Tablet Take 1 Tablet by mouth in the morning and 1 Tablet before bedtime. Active CPAP every night at bedtime . Active [facility] Vitamin B-12 1000 MCG Oral Tablet (vitamin b 12)Indications:B 12 deficiency TAKE 1 TABLET BY MOUTH EVERY DAY IN THE MORNING 90 Tablet 4 3 Active buPROPion HCl ER (XL) 150 MG Oral Tablet Extended Release 24 Hour (Wellbutrin XL)Indications:A djustment disorder with depressed mood Take 1 Tablet by mouth in the morning. 90 Tablet 3 3 Active Amiodarone HCl 200 MG Oral Tablet (Cordarone)Indic ations:Ventricul ar fibrillation (HCC) Take 1 Tablet by mouth in the morning and 1 Tablet before bedtime. 180 Tablet 3 3 Active Xarelto 20 MG Oral Tablet (Rivaroxaban) TAKE 1 TABLET BY MOUTH EVERY DAY WITH DINNER 90 Tablet 3 3 Active Additional Information Patient taking differently: 20 mg Oral HS, Reported on 12/18/2023 Bimatoprost 0.03 % Ophthalmic Solution (Lumigan) INSTILL 1 DROP INTO THE RIGHT EYE ONCE DAILY INTHE EVENING 3 Active Fenofibrate 145 MG Oral Tablet (Tricor)Indicati ons:Mixed dyslipidemia TAKE 1 TABLET BY MOUTH EVERY DAY 90 Tablet 3 3 Active Jardiance 10 MG Oral Tablet (Empagliflozin)I ndications:Type 2 diabetes mellitus with hemoglobin A1c goal of less than 7.0% (HCC) TAKE 1 TABLET BY MOUTH EVERY DAY 90 Tablet 3 3 Active EpiPen 2-Baldev 0.3 MG/0.3ML Injection Solution Auto-injector For a severe reaction: Place orange end against the outer thigh, press firmly, hold in place for 10 seconds and go to the Emergency room. 2 Each 4 Active traZODone HCl 50 MG Oral Tablet (Desyrel)Indicat ions:Insomnia, unspecified type 1-2 tab 1 hour before bed for sleep 180 Tablet 3 4 Active Vitamin D (Cholecalciferol ) 25 MCG (1000 UT) Oral Tablet Take by mouth. 02/11/20 24 Discontinued Carvedilol 12.5 MG Oral Tablet (Coreg)Indicatio ns:HTN, goal below 130/80 TAKE 1 TABLET BY MOUTH IN THE MORNING AND 1 TABLET BEFORE BEDTIME WITH FOOD 180 Tablet 2 3 03/07/20 24 Discontinued Rosuvastatin Calcium 10 MG Oral Tablet (Crestor)Indicat ions:Dyslipidemi a TAKE 1 TABLET BY MOUTH EVERY DAY IN THE MORNING 90 Tablet 2 3 03/07/20 24 Discontinued Glimepiride 2 MG Oral Tablet (Amaryl)Indicati ons:Type 2 diabetes mellitus with hemoglobin A1c goal of less than 7.0% (HCC) TAKE 2 TABLETS BY MOUTH EVERY DAY 180 Tablet 1 3 01/26/20 24 Discontinued metFORMIN HCl 1000 MG Oral Tablet (Glucophage) TAKE 1 TABLET BY MOUTH TWICE A DAY WITH BREAKFAST AND DINNER 180 Tablet 1 3 01/11/20 24 Discontinued Mounjaro 7.5 MG/0.5ML Subcutaneous Solution Pen-injector (Tirzepatide) Inject 7.5 mg under the skin once a week. 2 mL 3 01/07/20 24 Discontinued(Ref ill) Mounjaro 7.5 MG/0.5ML Subcutaneous Solution Pen-injector (Tirzepatide) Inject 7.5 mg under the skin once a week. 2 mL 4 01/08/20 24 Discontinued(Ref ill) Mounjaro 7.5 MG/0.5ML Subcutaneous Solution Pen-injector (Tirzepatide) Inject 7.5 mg under the skin once a week. 2 mL 4 02/12/20 24 Discontinued(Med ication List Clean Up) documented as of this encounter (statuses as of 04/03/2024) Active Problems Problem Noted Date Diagnosed Date [...] cardioverted. Required a 2nd cardioversion. Transferred to [facility]. Required a 3rd cardioversion. Had cardiac catheterization [...] as of this encounter (statuses as of 04/03/2024) Resolved Problems Problem Noted Date Diagnosed Date [...] as of this encounter (statuses as of 04/03/2024) Immunizations Name Administration Dates Next Due COVID-19 mRNA, LNP-s, No Pre serve, 2-Dose Series ([email or web address]) 03/02/2021,02/09/2021 COVID-19, MRNA-LNP, 23-24, P F, 30 MCG/0.3 mL, 12 YRS AND ABOVE, IM (PFIZER-Comirnaty) 08/13/2023 Covid-19, Mrna, Lnp-s, Pf, B ivalent, 30 Mcg, IM, 12 yrs and above (Pfizer) 07/27/2022 Hepatitis B, 20+ yrs 05/10/2017,11/02/2016,08/31 Pneumococcal Conjugate Vacci ne, 20-valent ([id number]) 06/13/2022 Pneumococcal Polysaccharide PPV23 (Pneumovax) 02/24/2014 Seasonal Influenza Virus Vac cine, Unspecified Formulation 08/06/2020 Seasonal Influenza, PF, 6 M & above, IM , (FluLaval or Fluzone) 07/13/2023,07/20/2022,08/25/2019,07/12,07/30/2017 Seasonal Influenza, Quadriva lent, No Preserve, IM 06/30/2016,07/24/2015 Seasonal Influenza, Quadriva lent,with Preserve, 3 yr & above, IM 08/06/2020 Seasonal Influenza, Split, I IV3, With Preserve, Inj 09/16/2014,08/26/2013,07/15/2012,07/04,06/27/2010 TDAP (age 10 and older)(Boostrix) 06/21/2021 TDAP, Age 7 and older, IM (Adacel) 06/27/2010 Zoster Vaccine Recombinant (Shingrix) 06/18/2020 ,12/19/2019 [...] money to buy more. Never true 06/29/20 23 Within the past 12 months, t he [...] encounter Miscellaneous Notes * Telephone Encounter - Glenys Beauchamp LPN - 01/08/2024 3:50 PM EDT Pt aware, but [facility] does not have it either. [employer] shortage. Would need next rx on . Pt will keep trying around to pharmacies, to see if any would come available. * Telephone Encounter - Aquilino David MD - 01/08/2024 1:06 PM EDT Sent to [facility]--notify pt * Telephone Encounter - Glenys Beauchamp LPN - 01/08/2024 12:06 PM EDT Please try and send to [facility]. * Telephone Encounter - Aquilino David MD - 01/07/2024 2:34 PM EDT Will see if our pharmacy has it. If not , [facility] may * Telephone Encounter - Nely Solano OSA - 01/03/2024 1:04 PM EST [facility] pharmacy can not get mediaction katya documented in this encounter Plan of Treatment Upcoming Encounters Date Type Department Care Team (Late st Contact Info) Description 05/14/2024 9:00 AM EDT Office Visit Family Practice [facility] [address] [place] [address] [place] CRNP [address] [place] [address] 06/13/2024 11:20 AM EDT Telemedicine Nutrition & Weight Management, [facility] [address] [facility] [place] [address] Gemma Streeter PA-C [address] [place] [address] 07/23/2024 3:00 PM EDT Office Visit Dermatology [address] [place] [address] Bruna Camacho PA-C [address] [place] [address] [place] [address] 09/02/2024 10:30 AM EST Cardiac Studies Cardiology, [facility] [address] [place] [address] [facility] [address] [place] [address] Scheduled Procedures Name Priority Associated Diagnoses Date/Ti [...] Depression Screening 07/13/2024 07/13/2023 GFR 02/20/2025 02/21/2024, 11/2022, 08/28/2023, Additional history exists Colonoscopy 09/14/2027 09/14/2017, [...] this encounter Medical Devices Implanted Type Area Nail Machine Operator Device Identifier Shelf Expiration Date Model / Serial / Lot Lead Emblem S-Icd 45cm - [id number] Implanted:Qty: 1 on 08/27/2023 by Geovanni Bolivar MD at [facility] [employer] : CRM [id number] 12/08/2024 3501 / [id number] / [id number] Generator Pulse - [id number] Implanted:Qty: 1 on 08/27/2023 by Geovanni Bolivar MD at [facility] [place] [employer] : PAIN MGMT [id number] 04/03/2025 A219 / [id number] / [id number] Sys Delivery Electrode S-Icd - [id number] Implanted:Qty: 1 on 08/27/2023 by Geovanni Bolivar MD at [facility] [place] [employer] : CRM [id number] 01/27/2024 [id number] / / [id number] documented as of this encounter Advance Directives * Full Code (Latest Code Status on File) Date Activated Date Inactivated Comments 08/24/2023 11:45 AM 08/28/2023 4:24 PM This orde r reflects the patients wishes and were consensually agreed upon. Question Answer Comments Discussion of Advance Directives occurred with: Patient Care Teams Film Crew Member Relationship Specialty Start Date End Date Aquilino David MD [address] [place] [address] PCP - General Family Medicine 09/07/23 documented as of this encounter
--- OUTSIDE RECORDS SUMMARY | 2024-04-04 21:57 | External Medical Summary | Summary of Care ---
Author Name Unknown Organization [facility] Address [address] [place] [address] Phone [phone] Care Team Providers Care Blank Driller Name Role Phone Aquilino David MD Primary Care Provider + Encounter Details Date Type Department Care Team (Late st Contact Info) Description 03/17/2024 Orders Only Outcomes Research Department [address], [place] [id number] Chata Cline CHRA MyCode Research Other*[id number] Allergies Active Allergy Reactions Criticality Noted Date Comments Lisinopril Rash 11/14/2017 angiedema Warfarin Sodium Hives Medium 01/05/2011 Rash "like poison jamal" documented as of this encounter (statuses as of 03/17/2024) Medications Medication Sig Dispensed Refills Start Date [...] hemoglobin A1c goal of less than 7.0% ([facility]) Test home glucose once daily in am prior to breakfast 100 Each 3 12/21/2017 Active Contour Next Test In Vitro Strip (Glucose Blood)Indications:T ype 2 diabetes mellitus with hemoglobin A1c goal of less than 7.0% ([facility]) USE DIRECTED TEST TWICE DAILY 25 Strip [...] hemoglobin A1c goal of less than 7.0% ([facility]) TAKE 1 TABLET BY MOUTH EVERY DAY [...] for sleep 180 Tablet 3 11/30/2023 Active metFORMIN HCl 1000 MG Oral Tablet (Glucophage) TAKE 1 TABLET BY MOUTH TWICE A DAY WITH BREAKFAST AND DINNER 180 Tablet 2 01/11/2024 Active Glimepiride 2 MG Oral Tablet (Amaryl)Indications :Type 2 diabetes mellitus with hemoglobin A1c goal of less than 7.0% (HCC) TAKE 2 TABLETS BY MOUTH EVERY DAY 180 Tablet 1 01/26/2024 Active Aspirin 81 MG Oral Tablet Delayed ReleaseIndications: Septal infarction (HCC) Take 1 Tablet by mouth in the morning. 90 Tablet 3 02/11/2024 Active Ozempic (1 MG/DOSE) 4 MG/3ML Subcutaneous Solution Pen-injector (Semaglutide (1 MG/DOSE))Indication s:Type 2 diabetes mellitus with hemoglobin A1c goal of less than 7.0% (HCC) Inject 1 mg under the skin once a week. 3 mL 2 03/04/2024 Active Rosuvastatin Calcium 10 MG Oral Tablet (Crestor)Indication s:Dyslipidemia Take 1 Tablet by mouth at bedtime. 90 Tablet 1 03/07/2024 Active Carvedilol 12.5 MG Oral Tablet (Coreg)Indications: HTN, goal below 130/80 TAKE 1 TABLET BY MOUTH IN THE MORNING AND 1 TABLET BEFORE BEDTIME WITH FOOD 180 Tablet 1 03/07/2024 Active documented as of this encounter (statuses as of 03/17/2024) Active Problems Problem Noted Date Diagnosed Date [...] cardioverted. Required a 2nd cardioversion. Transferred to [facility]. Required a 3rd cardioversion. Had cardiac [...] as of this encounter (statuses as of 03/17/2024) Resolved Problems Problem Noted Date Diagnosed Date [...] as of this encounter (statuses as of 03/17/2024) Immunizations Name Administration Dates Next Due COVID-19 mRNA, LNP-s, No Pre serve, 2-Dose Series ([employer]) 03/02/2021,02/09/2021 COVID-19, MRNA-LNP, 23-24, P F, 30 MCG/0.3 mL, 12 YRS AND ABOVE, IM ([employer]) 08/13/2023 Covid-19, Mrna, Lnp-s, Pf, B ivalent, 30 Mcg, IM, 12 yrs and above (Pfizer) 07/27/2022 Hepatitis B, 20+ yrs 05/10/2017,11/02/2016,08/31 Pneumococcal Conjugate Vacci ne, 20-valent ([id number]) 06/13/2022 Pneumococcal Polysaccharide PPV23 (Pneumovax) 02/24/2014 Seasonal [...] (15 years old or older) No 08/24/20 23 Cognitive Status Response Date of Assessm ent Because of a physical, menta l, or emotional condition, do you have serious difficulty concentrating, remembering, or making decisions? (5 years old or older) No 08/24/2023 documented as of this encounter Plan of Treatment Upcoming Encounters Date Type Department Care Team (Late st Contact Info) Description 05/14/2024 9:00 AM EDT Office Visit Family Practice [facility] [address] [place] [address] [place] CRNP [address] [place] [address] 06/13/2024 11:20 AM EDT Telemedicine Nutrition & Weight Management, [facility] [address] [place] [address] Gemma Streeter PA-C [address] [place] [address] 07/23/2024 3:00 PM EDT Office Visit Dermatology [address] [place] [address] Bruna Camacho PA-C [address] [place] [address] [place] [address] 09/02/2024 10:30 AM EST Cardiac Studies Cardiology, [facility] [address] [place] [address] [facility] [address] [place] [address] Scheduled Orders Name Type Priority Associated Diagnoses Orde r Schedule MYCODE SUBSEQUENT ADULT Lab Routine MyCode Research Other*[id number] Every 6 Months for 2 Occurrences starting 03/17/2024 until 04/06/2025 Scheduled Procedures Name Priority Associated Diagnoses Date/Ti [...] this encounter Medical Devices Implanted Type Area Systems Protection Technician Device Identifier Shelf Expiration Date Model / Serial / Lot Lead Emblem S-Icd 45cm - [id number] Implanted:Qty: 1 on 08/27/2023 by Geovanni Bolivar MD at [facility] [place] [employer] : CRM [id number] 12/08/2024 3501 / [id number] / [id number] Generator Pulse - [id number] Implanted:Qty: 1 on 08/27/2023 by Geovanni Bolivar MD at [facility] [place] [employer] : PAIN MGMT [id number] 04/03/2025 A219 / [id number] / [id number] Sys Delivery Electrode S-Icd - [id number] Implanted:Qty: 1 on 08/27/2023 by Geovanni Bolivar MD at [facility] [place] [employer] : CRM [id number] 01/27/2024 [id number] / / [id number] documented as of this encounter Visit Diagnoses Diagnosis MyCode Research Other*[id number] documented in this encounter Advance Directives * Full Code (Latest Code Status on File) Date Activated Date Inactivated Comments 08/24/2023 11:45 AM 08/28/2023 4:24 PM This orde r reflects the patients wishes and were consensually agreed upon. Question Answer Comments Discussion of Advance Directives occurred with: Patient Care Teams Blank Driller Relationship Specialty Start Date End Date Aquilino David MD [address] [place] [address] PCP - General Family Medicine 09/07/23 documented as of this encounter
--- OUTSIDE RECORDS SUMMARY | 2024-04-04 21:57 | External Medical Summary | Summary of Care ---
Author Name Unknown Organization [facility] Address [address] [place] [address] Phone [phone] Care Team Providers Care Laser Beam Trim Operator Name Role Phone Aquilino David MD Primary Care Provider + Reason for Visit * Reason Onset Date Comments Advice 12/11/2023 Encounter Details Date Type Department Care Team (Late st Contact Info) Description 12/11/[address] [facility] [address] [place] [address] Aquilino David MD [address] [place] [address] Advice Allergies Active Allergy Reactions Criticality Noted Date Comments Lisinopril Rash 11/14/2017 angiedema Warfarin Sodium Hives Medium 01/05/2011 Rash "like poison jamal" documented as of this encounter (statuses as of 03/11/2024) Medications Medication Sig Dispensed Refills Start Date End Date Status Omeprazole Magnesium (PRILOSEC OTC) 20 MG TBECIndications:G astroesophageal reflux disease without esophagitis Take 1 Tab by mouth daily. 30 min before eating 90 Tab 3 07/30/2017 Active Blood Glucose Monitoring Suppl (D-CARE GLUCOMETER) w/Device KITIndications:Ty pe 2 diabetes mellitus with hemoglobin A1c goal of less than 7.0% ([facility]) Use as directed. 1 Kit 2 12/21/2017 Active Blood Glucose Monitoring Suppl (CONTOUR NEXT ONE) KITIndications:Ty pe 2 diabetes mellitus with hemoglobin A1c goal of less than 7.0% (HCC) Use as directed. 1 Kit 5 12/21/2017 Active CHERYL MICROLET LANCETS MISCIndications:T ype 2 diabetes mellitus with hemoglobin A1c goal of less than 7.0% (HCC) Test home glucose once daily in am prior to breakfast 100 Each 3 12/21/2017 Active Contour Next Test In Vitro Strip (Glucose Blood)Indications :Type 2 diabetes mellitus with hemoglobin A1c goal of less than 7.0% (HCC) USE DIRECTED TEST TWICE DAILY 25 Strip 3 09/27/2020 Active Lumigan 0.01 % Ophthalmic Solution (Bimatoprost) Instill 1 Drop into both eyes at bedtime. 0 Active Calcium 500 MG Oral Tablet Take 1 Tablet by mouth in the morning and 1 Tablet before bedtime. 0 Active CPAP every night at bedtime . 0 Active [facility] Vitamin B-12 1000 MCG Oral Tablet (vitamin b 12)Indications:B1 2 deficiency TAKE 1 TABLET BY MOUTH EVERY DAY IN THE MORNING 90 Tablet 4 08/06/2023 Active buPROPion HCl ER (XL) 150 MG Oral Tablet Extended Release 24 Hour (Wellbutrin XL)Indications:Ad justment disorder with depressed mood Take 1 Tablet by mouth in the morning. 90 Tablet 3 09/13/2023 Active Amiodarone HCl 200 MG Oral Tablet (Cordarone)Indica tions:Ventricular fibrillation (HCC) Take 1 Tablet by mouth [...] THE RIGHT EYE ONCE DAILY INTHE EVENING 0 08/31/2023 Active Fenofibrate 145 MG Oral Tablet (Tricor)Indicatio ns:Mixed dyslipidemia TAKE 1 TABLET BY MOUTH EVERY DAY 90 Tablet 3 10/23/2023 Active Jardiance 10 MG Oral Tablet (Empagliflozin)In dications:Type 2 diabetes mellitus with hemoglobin A1c goal of less than 7.0% (HCC) TAKE 1 TABLET BY MOUTH EVERY DAY 90 Tablet 3 10/28/2023 Active EpiPen 2-Baldev 0.3 MG/0.3ML Injection Solution Auto-injector For a severe reaction: Place orange end against the outer thigh, press firmly, hold in place for 10 seconds and go to the Emergency room. 2 Each 0 11/07/2023 Active traZODone HCl 50 MG Oral Tablet (Desyrel)Indicati ons:Insomnia, unspecified type 1-2 tab 1 hour before bed for sleep 180 Tablet 3 11/30/2023 Active Vitamin D (Cholecalciferol) 25 MCG (1000 UT) Oral Tablet Take by mouth. 0 02/11/20 24 Discontinued Carvedilol 12.5 MG Oral Tablet (Coreg)Indication s:HTN, goal below 130/80 TAKE 1 TABLET BY MOUTH IN THE MORNING AND 1 TABLET BEFORE BEDTIME WITH FOOD 180 Tablet 2 06/13/2023 03/07/20 24 Discontinued Rosuvastatin Calcium 10 MG Oral Tablet (Crestor)Indicati ons:Dyslipidemia TAKE 1 TABLET BY MOUTH EVERY DAY IN THE MORNING 90 Tablet 2 06/13/2023 03/07/20 24 Discontinued Glimepiride 2 MG Oral Tablet (Amaryl)Indicatio ns:Type 2 diabetes mellitus with hemoglobin A1c goal of less than 7.0% ([facility]) TAKE 2 TABLETS BY MOUTH EVERY DAY 180 Tablet 1 07/19/2023 01/26/20 24 Discontinued documented as of this encounter (statuses as of 03/11/2024) Active Problems Problem Noted Date Diagnosed Date [...] cardioverted. Required a 2nd cardioversion. Transferred to [facility]. Required a 3rd cardioversion. Had cardiac [...] as of this encounter (statuses as of 03/11/2024) Resolved Problems Problem Noted Date Diagnosed Date [...] as of this encounter (statuses as of 03/11/2024) Immunizations Name Administration Dates Next Due COVID-19 mRNA, LNP-s, No Pre serve, 2-Dose Series ([employer]) 03/02/2021,02/09/2021 COVID-19, MRNA-LNP, 23-24, P F, 30 MCG/0.3 mL, 12 YRS AND ABOVE, IM ([facility]) 08/13/2023 Covid-19, Mrna, Lnp-s, Pf, B ivalent, 30 Mcg, IM, 12 yrs and above (Pfizer) 07/27/2022 Hepatitis B, 20+ yrs 05/10/2017,11/02/2016,08/31 Pneumococcal Conjugate Vacci ne, 20-valent ([id number]) 06/13/2022 Pneumococcal Polysaccharide PPV23 (Pneumovax) 02/24/2014 Seasonal [...] encounter Miscellaneous Notes * Telephone Encounter - Ann Marie Fernández OSA - 12/11/2023 2:06 PM EST Reason for patient's call: Question Caller was transferred to [facility] at the clinic. documented in this encounter Plan of Treatment Upcoming Encounters Date Type Department Care Team (Late st Contact Info) Description 05/14/2024 9:00 AM EDT Office Visit Family Practice [facility] [address] [place] [address] [place] CRNP [address] [place] [address] 06/13/2024 11:20 AM EDT Telemedicine Nutrition & Weight Management, [facility] [address] [place] [address] Gemma Streeter PA-C [address] [place] [address] 07/23/2024 3:00 PM EDT Office Visit Dermatology [address] [place] [address] Bruna Camacho PA-C [address] [place] [address] [place] [address] 09/02/2024 10:30 AM EST Cardiac Studies Cardiology, [facility] [address] [place] [address] Abigail Dao [facility] [address] [place] [address] Scheduled Procedures Name Priority Associated Diagnoses Date/Ti [...] this encounter Medical Devices Implanted Type Area Blood Bank Technologist Device Identifier Shelf Expiration Date Model / Serial / Lot Lead Emblem S-Icd 45cm - [id number] Implanted:Qty: 1 on 08/27/2023 by Geovanni Bolivar MD at [facility] [place] [employer] : CRM [id number] 12/08/2024 3501 / [id number] / [id number] Generator Pulse - [id number] Implanted:Qty: 1 on 08/27/2023 by Geovanni Bolivar MD at [facility] [place] [employer] : PAIN MGMT [id number] 04/03/2025 A219 / [id number] / [id number] Sys Delivery Electrode S-Icd - [id number] Implanted:Qty: 1 on 08/27/2023 by Goevanni Bolivar MD at [facility] [place] [employer] : CRM [id number] 01/27/2024 [id number] / / [id number] documented as of this encounter Advance Directives Latest Code Status on File Code Status Date Activated Date Inactivated Comments Full Code 08/24/2023 11:45 AM 08/28/2023 4:24 PM Th is order reflects the patients wishes and were consensually agreed upon. Question Answer Comments Discussion of Advance Directives occurred with: Patient Care Teams Laser Beam Trim Operator Relationship Specialty Start Date End Date Aquilino David MD [address] [facility] [place] [address] PCP - General Family Medicine 09/07/23 documented as of this encounter
--- OUTSIDE RECORDS SUMMARY | 2024-04-04 21:57 | External Medical Summary | Summary of Care ---
Author Name Unknown Organization [facility] Address [address] [facility] [address] Phone [phone] Care Team Providers Care Centrifugal Casting Machine Operator Name Role Phone Aquilino David MD Primary Care Provider + Encounter Details Date Type Department Care Team (Late st Contact Info) Description 03/17/2024 Result Scan Unspecified Department Edwin Jack, DO [address] [place] [address] <No scans attached> Allergies Active Allergy Reactions Criticality Noted Date [...] hemoglobin A1c goal of less than 7.0% ([facility]) Test home glucose once daily in am prior to breakfast 100 Each 3 12/21/2017 Active Contour Next Test In Vitro Strip (Glucose Blood)Indications:T ype 2 diabetes mellitus with hemoglobin A1c goal of less than 7.0% ([facility]) USE DIRECTED TEST TWICE DAILY 25 Strip [...] hemoglobin A1c goal of less than 7.0% ([facility]) TAKE 1 TABLET BY MOUTH EVERY DAY [...] cardioverted. Required a 2nd cardioversion. Transferred to [facility]. Required a 3rd cardioversion. Had cardiac [...] mRNA, LNP-s, No Pre serve, 2-Dose Series (Keyade) 03/02/2021,02/09/2021 COVID-19, MRNA-LNP, 23-24, P F, 30 MCG/0.3 mL, 12 YRS AND ABOVE, IM (Flytenow-Comirnat) 08/13/2023 Covid-19, Mrna, Lnp-s, Pf, B ivalent, 30 Mcg, IM, 12 yrs and above (Pfizer) 07/27/2022 Hepatitis B, 20+ yrs 05/10/2017,11/02/2016,08/31 Pneumococcal Conjugate Vacci ne, 20-valent ([id number]) 06/13/2022 Pneumococcal Polysaccharide PPV23 (Pneumovax) 02/24/2014 Seasonal [...] 9:00 AM EDT Office Visit Family Practice [facility] [address] [address] [place] CRNP [address] [place] [address] 06/13/2024 11:20 AM EDT Telemedicine Nutrition & Weight Management, [facility] [address] [place] [address] Gemma Streeter PA-C [address] [place] [address] 07/23/2024 3:00 PM EDT Office Visit Dermatology [address] [place] [address] Bruna Camacho PA-C [address] [place] [address] [place] [address] 09/02/2024 10:30 AM EST Cardiac Studies Cardiology, [facility] [address] [address] [facility] [address] [address] Scheduled Procedures Name Priority Associated Diagnoses Date/Ti [...] this encounter Medical Devices Implanted Type Area Food Stylist Device Identifier Shelf Expiration Date Model / Serial / Lot Lead Emblem S-Icd 45cm - [id number] Implanted:Qty: 1 on 08/27/2023 by Geovanni Bolivar MD at [facility] [place] [employer] : CRM [id number] 12/08/2024 3501 / [id number] / [id number] Generator Pulse - [id number] Implanted:Qty: 1 on 08/27/2023 by Geovanni Bolivar MD at [facility] [place] [employer] : PAIN MGMT [id number] 04/03/2025 [id number] / [id number] / [id number] Sys Delivery Electrode S-Icd - [id number] Implanted:Qty: 1 on 08/27/2023 by Geovanni Bolivar MD at [facility] [place] [employer] : CRM [id number] 01/27/2024 [id number] / / [id number] documented as of this encounter Procedures Procedure Name Priority Date/Time Associated Diagnosis Comments CARDIOLOGY SCANNED RESULT 03/17/2024 documented in this encounter Results * CARDIOLOGY SCANNED RESULT (03/17/2024) 03/17/2024 Edwin VILLASENOR documented in this encounter Advance Directives * Full Code (Latest Code Status on File) Date Activated Date Inactivated Comments 08/24/2023 11:45 AM 08/28/2023 4:24 PM This orde r reflects the patients wishes and were consensually agreed upon. Question Answer Comments Discussion of Advance Directives occurred with: Patient Care Teams Centrifugal Casting Machine Operator Relationship Specialty Start Date End Date Aquilino David MD [address] [place] [address] PCP - General Family Medicine 09/07/23 documented as of this encounter
[2024-04-04] MEDS: HYDROCODONE/ACETAMOPHEN 5/325MG TAB PO PRN (22:41)
--- NOTE | 2024-04-05 06:53 | Orthopedic Progress Note ---
Date of Service April 05, 2024 Assessment & Plan (1) Status post left knee replacement: Overall he is doing very well. Is not having much pain in the right knee. He will be seen by physical therapy today for ambulation and range of motion exercises. The nursing staff can change his dressing after physical therapy. He is on Xarelto for DVT prophylaxis. He can be discharged home later today. He will follow-up with orthopedics in 2 weeks. Julito Jane was seen and examined at bedside this morning. Overall he is doing very well. He is not having much pain in the right knee. He has been up and ambulating to the bathroom. Has no complaints.. Review of Systems All systems reviewed & are unremarkable except as noted in HPI & below. Physical Exam On physical examination of the right knee, the dressing is clean and dry. His leg is out full extension. He has active dorsiflexion plantarflexion of his right ankle.. Results & Data Results & Data Laboratory Results . Diagnostic Findings Postoperative x-rays of the right knee show the prosthesis to be in anatomic alignment without any evidence of fracture, dislocation, or loosening.. PG Care Time/CCT Total # of Minutes Spent Total Time Spent with Patient: Total time spent is greater than 50% in coordination of care (as documented) at patient's floor/unit and/or counseling patient: Coding Level of Care Code 51715 Post Operative Follow-Up Diagnoses Status post left knee replacement Z96.652
--- NOTE | 2024-04-05 06:54 | Discharge Summary ---
Date of Service April 05, 2024 Admission HPI (Per Admitting) Calin is a pleasant 58-year-old male who has been dealing with a chronic increasing left knee pain. X-rays and clinical examination have been diagnostic for severe osteoarthritis of his left knee. He is followed up with my partner, Dr. Anna. He has failed extensive conservative treatment including years of injections of the left knee. He is a high risk for surgery given his BMI, his factor V Leiden deficiency, and his diabetes. After full discussions in the office, he has elected proceed with a left total knee arthroplasty. Admission Exam (Per Admitting) On physical examination of the left knee, he has a slight varus deformity. He has tenderness palpation of the distal medial femoral condyle and over the medial joint line.. Principal Diagnosis Same as "Discharge Diagnosis" noted below under Discharge Instructions. Discharge Exam On physical examination of the right knee, the dressing is clean and dry. His leg is out full extension. He has active dorsiflexion plantarflexion of his right ankle.. Discharge Data Procedures Performed Operation Date: 04/04/24 07:00 Actual Procedures p Left Total Knee Arthroplasty(Left) - David Davis DO Ordered Studies 04/04/24 05:00 US - OR guided needle placemen Routine Hospital Course (1) Status post left knee replacement: On April 04, 2024 Buck arrived at [facility] and underwent a left knee replacement without complication. He had a spinal anesthetic. Postoperatively he was started on Xarelto for DVT prophylaxis and transferred to the general orthopedic floors. His hospital course was uneventful. On postop day #1, his vital signs were stable and his pain was well-controlled. He was able to participate well with physical therapy doing ambulation and range of motion exercises. He was then discharged home. He will follow-up with orthopedics in 2 weeks. PG Care Time/CCT Total # of Minutes Spent Total Time Spent with Patient: Total time spent is greater than 50% in coordination of care (as documented) at patient's floor/unit and/or counseling patient: Discharge Plan Discharge Items Patient Disposition: Home - Self-Care Reason For Visit: Degenerative Joint Disease Left Knee Discharge Diagnosis: Left knee replacement Activity: Per Instructions section Non-emergency contact: Surgeon Call non-emergency contact if: your wound has increased redness and your wound has increased drainage Follow-up/Referrals: Cyrus Lewis DO [Primary Care Provider] - Diet: Regular Addtl Attending Provider Instructions: Activity and Therapy Recommendations: * If you are using [facility] then therapy will be provided at your home until they feel you have accomplished all of your goals. * If you are using [facility] then Physical Therapy will be provided until they feel you are ready to start Outpatient Physical Therapy. * If you are not using home therapy then Outpatient Physical Therapy should start about 3-5 days from your day of surgery. Therapy will last about 6-10 weeks * It is important not to put a pillow under your knee when you are relaxing or sleeping. It is just as important to make sure you are getting your knee perfectly straight as it is to regain your knee bend. * You were shown a series of exercises in the hospital. Do these exercises three times each day including the exercises you were shown in physical therapy. * Get up and walk several times each day. For the first four weeks, try not to stand or walk for more than one hour at a time. If you do stand or walk for more than one hour, you will not hurt anything, but your leg will likely swell. * As you feel comfortable, you may change from the walker or crutches to a cane and then to independent walking. Medications: * Narcotic You will likely be sent home from the hospital with a prescription for the narcotic pain medication that worked best throughout your stay. * Cefadroxil -take the antibiotic twice a day for 10 days to help prevent infection. * Xarelto -take Xarelto 10 mg daily for 2 weeks, then resume 20 mg daily * Other medications may be prescribed for specific circumstances. If you have any questions, please call the office at . * Resume previous home medications unless otherwise instructed TEDs/Elastic Stockings: The white elastic stockings help limit swelling and prevent blood clots from forming in your legs.~ The more you wear them, the more they work. Wear them for six weeks. Dressing Care: The dressing can be changed after physical therapy on postop day #1. Daily dry dressing changes for a few days, especially if the incision is still draining some. If the incision is not draining then you may leave the brittany open to air. If there is a little bit of drainage or if the brittany are getting stuck on your clothing then cover the incision with a dry dressing. The brittany will be removed at your 2 week follow-up appointment. Showering: You may shower 5 days from the day of surgery as long as the incision is no longer draining. You may shower with the brittany exposed. Let soapy water run over the brittany and pat them dry. Do not scrub or soak the incision. Things To Watch For: * Drainage from the incision site that occurs more than one week after your surgery. * Increased redness at the incision site. * Fever above 102 degrees Fahrenheit. * Unusual chest pain or shortness of breath. * Call [facility] at with any of the above problems Follow-Up Visit: Follow-up with Dr. Davis's PA (David Mae) 2-3 weeks after your day of surgery. He will remove your brittany and answer any questions. If you have any additional questions or concerns, Dr Davis is usually in the office at the same time and will be available An appointment was probably scheduled when you signed-up for surgery in the office. If you have any questions call Office Instructions: More detailed instructions as well as Frequently Asked Questions were provided in a folder by our office when you signed-up for surgery. Please review these instructions when you get home. If you have any further questions or concerns, please feel free to call the office at [phone] Pending Studies at Discharge: No Stand-Alone Forms: [facility] [employer], Smoking Cessation Medications and DC Order Prescriptions: New hydrocodone-acetaminophen 5-325 mg Tablet 1 tab PO Q4H PRN (Reason: pain) Qty: 30 0RF Xarelto 10 mg Tablet 10 mg PO DAILY Qty: 14 0RF cefadroxil 500 mg capsule 500 mg PO BID 10 Days Qty: 20 0RF Continued glimepiride [Amaryl] 2 mg tablet 4 mg PO QAM metformin [Glucophage] 1,000 mg tablet 1,000 mg PO BID Xarelto 20 mg tablet 20 mg PO QAM Jardiance 10 mg tablet 10 mg PO QPM aspirin [Adult Aspirin Regimen] 81 mg tablet,delayed release (DR/EC) 81 mg PO QAM omeprazole 20 mg capsule,delayed release(DR/EC) 20 mg PO QPM carvedilol 12.5 mg tablet 12.5 mg PO BID cyanocobalamin (vitamin B-12) 1,000 mcg tablet 1,000 mcg PO QPM bimatoprost 0.03 % drops 1 drp OPR HS rosuvastatin 10 mg tablet 10 mg PO QAM fenofibrate nanocrystallized 145 mg tablet 145 mg PO QPM amiodarone 200 mg Tablet 200 mg PO BID fexofenadine [Bernice Allergy] 180 mg Tablet 180 mg PO QAM bupropion HCl [Wellbutrin XL] 150 mg Tablet Extended Release 24 Hr 150 mg PO QAM calcium carbonate-vitamin D3 [Calcium 500 + D (D3)] 500 mg-3.125 mcg (125 unit) Tablet 1 tab PO BID Ozempic 1 mg/dose (2 mg/1.5 mL) Pen Injector 1 mg SUBCUT WK Discharge Orders: Discharge Order (Routine); Ordered 04/05/24 Ordered By: David Davis Admission Data Admit Date/Time: 04/04/24 08:42 Attending Provider: David Davis Admit Provider: David Davis Primary Care Provider: Cyrus Lewis
[2024-04-05 07:21] LABS: Estimated Average Glucose 137 mg/dl; Hemoglobin A1C 6.4 % (4.5-5.6)
[2024-04-05] MEDS: RIVAROXABAN 10 MG TABLET PO SCH (08:19)
[2024-04-05] MEDS: metFORMIN HCL 500 MG TAB PO SCH (11:46)
== END 2024-04-05 11:55 | disposition home health service (06) ==
LOC: 3E 05:04 → ASU 05:04